=== PATIENT | male | born 1980 | race African-American/Black ===

== ENCOUNTER 2018-11-21 08:11 | Emergency (ER) | payer OTHER ==
[~2018-11-21] VITALS: Ht 182.9 cm; Wt 145.1 kg
[2018-11-21 08:18] VITALS: Ht 182.9 cm; Wt 145.1 kg
[2018-11-21 08:34] LABS: BASOPHIL % 0.6 % (0-2); PLATELET COUNT 340 x10^3mcL (130-400)
[2018-11-21 08:39] LABS: RED CELL DISTRIBUTION WIDTH 15.4 % (11.5-14.5)
[2018-11-21 08:44] LABS: CALCIUM 9.5 mg/dL (8.5-10.1); CARBON DIOXIDE 23.8 mmol/L (21-32); CHLORIDE SERUM 100 mmol/L (98-107); CREATININE SERUM 1.3 mg/dL (0.7-1.3); GFR1 > 60 mL/min; GLUCOSE SERUM 121 mg/dL (74-106); POTASSIUM SERUM 3.4 mmol/L (3.5-5.1); SODIUM SERUM 138 mmol/L (136-145)
[2018-11-21 08:49] LABS: ALBUMIN 4.3 g/dL (3.4-5.0); ALKALINE PHOSPHATASE 104 U/L (46-116); ALT/SGPT 34 U/L (16-63); AST/SGOT 29 U/L (15-37); BILIRUBIN TOTAL 0.73 mg/dL (0.20-1.00)
[2018-11-21 08:50] LABS: TOTAL PROTEIN, SERUM 8.8 g/dL (6.4-8.2)
[2018-11-21 11:30] VITALS: BP 125/78
== END 2018-11-21 11:30 | disposition home or self-care (01) ==
LOC: ED 08:11
PROVIDERS: Emergency Medicine
DX: R07.89 Other chest pain (principal); F41.1 Generalized anxiety disorder; R11.0 Nausea; Z88.0 Allergy status to penicillin
CPT/HCPCS: 36415; 85378; Q0092